=== PATIENT | female | born 1970 | race Caucasian/White ===

== ENCOUNTER → 2016-10-07 | Outpatient (CLI) | payer OTHER ==
[~2016-10-07] MED LIST: BECL0.3A INH; CMBIN INH; IBUP-1451 PO; MULT-506 PO
[2016-10-07 12:13] LABS: MEAN CELL VOLUME 88.6 fL (80-100); MEAN CORPUSCULAR HEMOGLOBIN 30.2 pg (25-34); MEAN CORPUSCULAR HGB CONC 34.1 g/dl (32-36); MEAN PLATELET VOLUME 10.9 fL (7.4-10.4); PLATELET COUNT 267 K/uL (130-400); RED BLOOD COUNT 4.63 M/uL (4.2-5.4); WHITE BLOOD COUNT 6.78 K/uL (4.8-10.8)
[2016-10-07 13:41] LABS: BLOOD UREA NITROGEN 14 mg/dl (7-18); BUN/CREATININE RATIO 19.3 (10-20); CALCIUM 8.6 mg/dl (8.5-10.1); CARBON DIOXIDE 24 mmol/L (21-32); CHLORIDE 109 mmol/L (98-107); CHOLESTEROL 154 mg/dl (0-200); CREATININE 0.74 mg/dl (0.60-1.20); GLUCOSE 96 mg/dl (70-99); SODIUM 140 mmol/L (136-145); TRIGLYCERIDES 51 mg/dl (0-150); VERY LOW DENSITY LIPOPROT CALC 10 mg/dl
[2016-10-07 13:47] LABS: CHOLESTEROL/HDL RATIO 2.8; HDL CHOLESTEROL 56 mg/dl; LDL CHOLESTEROL CALCULATED 88 mg/dl
== END | disposition home or self-care (01) ==
LOC: C.LABPBG 08:33
PROVIDERS: ATTEND Family Medicine
DX: Z13.220 Encounter for screening for lipoid disorders (principal)

== ENCOUNTER 2023-08-28 04:41 | Inpatient (IN) ==
--- OUTSIDE RECORDS SUMMARY | 2023-08-28 04:46 | External Medical Summary | Summary of Care ---
Author Name Unknown Organization [facility] Address [address] [place] [address] Phone [phone] Care Team Providers Care Computer Game Tester Name Role Phone Alexus Thakkar DO Primary Care Provider [phone]- [phone] Encounter Details Date Type Department Care Team (Late st Contact Info) Description 07/04/2023 Patient Reported Data Patient Survey Ortho [facility] Allergies Active Allergy Reactions Criticality Noted Date Comments Penicillins 08/12/2004 hives documented as of this encounter (statuses as of 07/04/2023) Medications Medication Sig Dispensed Refills Start Date End Date Status meclizine (ANTIVERT) 25 MG Tablet TAKE 1 TABLET BY MOUTH 3 TIMES A DAY NEEDED FOR DIZZINESS 07/10/2019 Active Cetirizine HCl (ZYRTEC ALLERGY) 10 MG Capsule Take 1 Capsule by mouth in the morning. Active Multiple Vitamins-Minerals (MULTIVITAMIN ADULT) TABS Take by mouth. Active vitamin b-12 (CYANOCOBALAMIN) 250 MCG TABS Take 1 Tablet by mouth in the morning. Active Hydroquinone 4 % External CreamIndications: Melasma Apply to dark spots on face after mixing with 1% OTC hydrocortisone cream nightly 28.35 g 2 11/22/2019 Active Additional Information Patient not taking.Reported on 04/01/2023 Phentermine HCl 37.5 MG Oral Capsule PLEASE SEE ATTACHED FOR DETAILED DIRECTIONS Active Lisinopril 5 MG Oral Tablet (Prinivil) Take 1 Tablet by mouth in the morning. Active Docusate Sodium 100 MG Oral Capsule (Colace) 1 Capsule. 10/16/2022 Active metFORMIN HCl 500 MG/5ML Oral Solution (Riomet) Take by mouth 2 times a day with morning and evening meals. Active Acetaminophen-Cod eine 300-30 MG Oral Tablet Take 1 Tablet by mouth every 4 hours as needed for Pain, Moderate. May take 2 tablets for severe pain. 10 Tablet 1 06/28/2023 Active documented as of this encounter (statuses as of 07/04/2023) Active Problems Problem Noted Date Diagnosed Date Carpal tunnel syndrome, bilateral 05/14/2023 documented as of this encounter (statuses as of 07/04/2023) Immunizations Name Administration Dates Next Due TDAP (age 10 and older)(Boostrix) 02/13/2019 documented as of this encounter Social History Tobacco Use Types Packs/Day Years Used Date Smoking Tobacco: Never Smokeless Tobacco: Never Alcohol Use Standard Drinks/Week Comments Yes 0 (1 standard drink = 0.6 oz pur e alcohol) AUDIT-C Answer Date Recorded Frequency of Alcohol Consumption Monthly or less 08/23/2018 Average Number of Drinks Not on file 019 Frequency of Binge Drinking Not on file 08/08 PHQ-2 Answer Date Recorded PHQ-2 Score 0 09/14/2019 Sex and Gender Information Value Date Recorded Sex Assigned at Not on file Gender Identity Not on file Sexual Orientation Not on file Job Start Date Occupation Industry Not on file Not on file Not on file documented as of this encounter Plan of Treatment Upcoming Encounters Date Type Department Care Team (Late st Contact Info) Description 07/09/2023 2:00 PM EDT Office Visit Orthopaedics [facility] [address] [address] Chuy Miller MD [address] [facility] [place] [address] 09/27/2023 8:00 AM EDT Office Visit Dermatology [address] [place] [address] Ivy Long PA-C [address] [place] [address] [place] [address] 12/06/2023 1:30 PM EDT Imaging Radiology [facility] 1st [facility] [address] [facility] [place] [address] Health Maintenance Due Date Last Done Comments Lipid Panel 1968 HIV Screening 11/07/1983 Hepatitis C Screening 1986 Hepatitis B (1 of 3 - 19+ 3-dose series) 11/07/1987 Diabetes Screening 05/23/2011 05/22/2008 Colonoscopy 2013 Fecal Occult Blood Test 2013 Sigmoidoscopy 2013 Zoster Vaccines (1 of 2) 2018 Depression Screening 09/13/2020 09/14/2019 COVID-19 Vaccine (1 - season) 2022 Influenza Vaccine (FLU shot) (Season Ended) 2023 11/23/2013 Mammogram 12/02/2023 12/01/2022, 11/09, 11/28/2021, Additional history exists Cologuard 12/15/2025 12/15/2022 Colorectal Cancer Screening 12/15/2025 DTaP,Tdap,and Td Vaccines (2 - Td or Tdap) 02/13/2029 02/13/2019 GARDASIL-HPV IMMUNIZATION SERIES Aged Out No longer eligible based on patient's age to complete this topic MENINGOCOCCAL (MENACTRA/MENVEO) Aged Out No longer eligible based on patient's age to complete this topic Pneumococcal Vaccine: Pediatrics (0 to 5 Years) and At-Risk Patients (6 to 64 Years) Aged Out No longer eligible based on patient's age to complete this topic documented as of this encounter Medical Devices Not on filedocumented as of this encounter Care Teams Computer Game Tester Relationship Specialty Start Date End Date Alexus Thakkar DO [address] [place] [address] [place] [address] PCP - General Family Medicine 10/13/16 documented as of this encounter
--- OUTSIDE RECORDS SUMMARY | 2023-08-28 04:46 | External Medical Summary | Summary of Care ---
Author Name Unknown Organization [facility] Address [address] [place] [address] Phone [phone] Care Team Providers Care Eight Arm Operator Name Role Phone Alexus Thakkar DO Primary Care Provider +1- [phone] Encounter Details Date Type Department Care Team [...] 07/09/2023 2:00 PM EDT Office Visit Orthopaedics [facility] [address] [address] Chuy Miller MD 132 [facility] [place] [address] 09/27/2023 8:00 AM EDT Office Visit Dermatology [address] [place] [address] Ivy Long PA-C [address] [place] [address] [place] [address] 12/06/2023 1:30 PM EDT Imaging Radiology [facility]st [facility] [address] [facility] [place] [address] Health Maintenance Due Date Last Done Comments [...] filedocumented as of this encounter Care Teams Eight Arm Operator Relationship Specialty Start Date End Date Alexus Thakkar DO [address] [place] [address] [place] [address] PCP - General Family Medicine 10/13/16 documented as of this encounter
--- OUTSIDE RECORDS SUMMARY | 2023-08-28 04:46 | External Medical Summary | Summary of Care ---
Author Name Unknown Organization [facility] Address [address] [facility] [place] [address] Phone [phone] Care Team Providers Care Washer Off Name Role Phone Ariane Alexusradha Martínez Primary Care Provider +1- [phone] Reason for Visit * Reason Comments Post-Op Rt CTR Encounter Details Date Type Department Care Team (Late st Contact Info) Description 07/09/2023 2:00 PM EDT Office Visit Orthopaedics [facility] [address] [place] [address] Chuy Miller MD [address] [place] [address] Carpal tunnel syndrome, bilateral* Allergies Active Allergy Reactions Criticality Noted Date Comments Penicillins 08/12/2004 hives documented as of this encounter (statuses as of 07/09/2023) Medications Medication Sig Dispensed Refills Start Date [...] as of this encounter (statuses as of 07/09/2023) Active Problems Problem Noted Date Diagnosed Date Carpal tunnel syndrome, bilateral 05/14/2023 documented as of this encounter (statuses as of 07/09/2023) Immunizations Name Administration Dates Next Due TDAP [...] on file documented as of this encounter Progress Notes * Chuy Miller MD - 07/09/2023 2:10 PM EDT She is 1 week status post release of her right carpal tunnel. She has no complaints. She has no numbness. Patient Active Problem List Diagnosis Carpal tunnel syndrome, bilateral Current Outpatient Medications Medication Sig Dispense Refill meclizine (ANTIVERT) 25 MG Tablet TAKE 1 TABLET BY MOUTH 3 TIMES A DAY NEEDED FOR DIZZINESS (Patient not taking: Reported on 04/01/2023) Cetirizine HCl (ZYRTEC ALLERGY) 10 MG Capsule Take 1 Capsule by mouth in the morning. Multiple Vitamins-Minerals (MULTIVITAMIN ADULT) TABS Take by mouth. (Patient not taking: Reported on 06/28/2023) vitamin b-12 (CYANOCOBALAMIN) 250 MCG TABS Take 1 Tablet by mouth in the morning. Hydroquinone 4 % External Cream Apply to dark spots on face after mixing with 1% OTC hydrocortisonecream nightly (Patient not taking: Reported on 04/01/2023) 28.35 g 2 Phentermine HCl 37.5 MG Oral Capsule PLEASE SEE ATTACHED FOR DETAILED DIRECTIONS (Patient not taking: Reported on 06/28/2023) Lisinopril 5 MG Oral Tablet (Prinivil) Take 1 Tablet by mouth in the morning. Docusate Sodium 100 MG Oral Capsule (Colace) 1 Capsule. metFORMIN HCl 500 MG/5ML Oral Solution (Riomet) Take by mouth 2 times a day with morning and evening meals. Acetaminophen-Codeine 300-30 MG Oral Tablet Take 1 Tablet by mouth every 4 hours as needed for Pain, Moderate. May take 2 tablets for severe pain. 10 Tablet 1 No current facility-administered medications for this visit. Review of patient's allergies indicates: Allergen Reactions Pcn [Penicillins] hives Past Medical History: Diagnosis Date Endometriosis Mitral valve prolapse Social History Tobacco Use Smoking status: Never Smokeless tobacco: Never Substance Use Topics Alcohol use: Yes Vaping/E-Cigarette Use Vaping/E-Cigarette Substances Vaping/E-Cigarette Devices PHYSICAL EXAM: The wound is clean and dry. There is no sign of infection. ASSESSMENT: Doing well. PLAN: The splint was discontinued. Wound Care was discussed. She may advance her activities as tolerated. Follow-up will be on a p.r.n. basis. Chuy Miller MD documented in this encounter Nursing Notes * Sharlene Cruz LPN - 07/09/2023 1:54 PM EDT 1st office visit S/P Rt CTR 06/28/23 . Sharlene Wiseman LPN documented in this encounter Plan of Treatment Upcoming Encounters Date Type Department Care Team (Late st Contact Info) Description 09/27/2023 8:00 AM EDT Office Visit Dermatology [address] [place] [address] Ivy Long PA-C [address] [place] [address] [place] [address] 12/06/2023 1:30 PM EDT Imaging Radiology [facility] 1st [facility] [place] [address] [place] [address] Health Maintenance Due Date Last Done Comments Lipid Panel 1968 HIV Screening 11/07/1983 Hepatitis C Screening 1986 Hepatitis B (1 of 3 - 19+ 3-dose series) 11/07/1987 Diabetes Screening 05/23/2011 05/22/2008 Colonoscopy 2013 Fecal Occult Blood Test 2013 Sigmoidoscopy 2013 Zoster Vaccines (1 of 2) 2018 Depression Screening 09/13/2020 09/14/2019 COVID-19 Vaccine ( - season) 2022 Influenza Vaccine (FLU shot) [...] Not on filedocumented as of this encounter Visit Diagnoses Diagnosis Carpal tunnel syndrome, bilateral- Primary Carpal tunnel syndrome documented in this encounter Care Teams Washer Off Relationship Specialty Start Date End Date Alexus Thakkar DO [address] [place] [address] PCP - General Family Medicine 10/13/16 documented as of this encounter
--- OUTSIDE RECORDS SUMMARY | 2023-08-28 04:46 | External Medical Summary | Summary of Care ---
Author Name Unknown Organization [facility] Address [address] [facility] [place] [address] Phone [phone] Care Team Providers Care Sanitary Chemist Name Role Phone Ariane Alexusradha Martínez Primary Care Provider +1- [phone] Reason for Visit * Auth/Cert Specialty Diagnoses / Procedures Referred By Harman jackson Referred To Contact Diagnoses Carpal tunnel syndrome, bilateral Carpal tunnel syndrome, bilateral [G56.03] Procedures CARPAL TUNNEL SURGERY RIGHT NEUROPLASTY MEDIAN NERVE AT CARPAL TUNNEL Chuy Miller MD [address] [employer] [place] [address] [facility] [address] [place] [address] Referral ID Status Reason Start Date Expiration Date Visits Re quested Visits Authorized [id number] Encounter Details Date Type Department Care Team (Latest Contact Info) Description 06/28/2023 9:41 AM EDT - 06/28/2023 12:35 PM EDT Hospital Encounter OR [facility], Operating Room [facility] [address] [place] [address] Chuy Miller MD [address] [employer] [place] [address] Discharge Disposition: Home - Self Care Allergies Active Allergy Reactions Criticality Noted Date Comments Penicillins 08/12/2004 hives documented as of this encounter (statuses as of 06/29/2023) Medications Medication Sig Dispensed Refills Start Date [...] as of this encounter (statuses as of 06/29/2023) Active Problems Problem Noted Date Diagnosed Date Carpal tunnel syndrome, bilateral 05/14/2023 documented as of this encounter (statuses as of 06/29/2023) Immunizations Name Administration Dates Next Due TDAP [...] on file documented as of this encounter Last Filed Vital Signs Vital Sign Reading Time Taken Comments Blood Pressure 120/74 06/28/2023 12:05 PM EDT Pulse 87 06/28/2023 12:05 PM EDT Temperature 36.7 C (98 F) 06/28/2023 12:05 PM EDT Respiratory Rate 18 06/28/2023 12:05 PM EDT Oxygen Saturation 97% 06/28/2023 12:05 PM EDT Inhaled Oxygen Concentration - - Weight 74.8 kg (165 lb) 06/28/2023 9:57 AM EDT Height 154.9 cm (5' 1") 06/28/2023 9:57 AM EDT Body Mass Index 31.18 06/28/2023 9:57 AM EDT documented in this encounter Discharge Instructions * Discharge Instr - AVS* Chuy Miller MD - 06/28/2023 12:05 PM EDT HAND SURGERY PATIENT INSTRUCTIONS You may call Cassidy Bernals [facility] at [phone] during business hours. Keep your hand elevated above the level of your heart for the first 48 - 72 hours and as needed after this time. It is a fact that holding your hand down for even one minute negates holding it up forhours! You may keep your arm in the sling provided, but you must place your hand at the level of your opposite shoulder, not down by your belly. When you are lying down, keep your hand on your chest, or on 2 pillows next to you. When you are sitting, rest your arm on your elbow, with your hand up, or restyour hand on 2 pillows. The nurse will show you how to do this. To prevent stiffness, come out of the sling and move shoulder, elbow and fingers several times a day. If your fingers are not immobilized by a splint, move them. Opening and closing your hand as if youare making a fist, then straightening out your fingers, pumps out fluid and prevents swelling. If your fingers are immobilized, then move only those fingers that are not splinted. If your dressing becomes loose, soiled, unraveled, or damaged in any way, DO NOT TAKE THE DRESSING OFF. CALL THE OFFICE IMMEDIATELY: [phone]. You have been given a prescription for pain medicine. Take it if you need it. Remember - keep your hand elevated to prevent swelling. SWOLLEN HANDS HURT! If your hands or fingers are swollen, cold, blue, or numb, or if the pain in your hands or fingers suddenly increases, CALL THE OFFICE IMMEDIATELY: [phone]. A small amount of blood staining the dressing may not indicate a problem, but you should call the office to be sure. If you do not already have a post-operative appointment scheduled, call the office at [phone] to arrange one. Do not get your hand or the dressing wet. Sponge bathe only. We will talk about when you can get your shower at your first post-operative visit. Do not drive until given permission to do so by your physician. documented in this encounter Progress Notes * Chuy Miller MD - 06/28/2023 12:04 PM EDT [facility] [address] [address] OUTPATIENT SURGERY DISCHARGE SUMMARY NOTE Name: Leela Bianchi Location: [facility] Date: 06/28/2023 Time: 12:04 PM Surgery Date: 06/28/2023 Procedure: RIGHT NEUROPLASTY MEDIAN NERVE AT CARPAL TUNNEL Right Surgeon: Chuy Miller MD Discharge Diagnosis: Right carpal tunnel syndrome After examination of this patient, I have determined she is ready for discharge to home when the patient meets criteria. Discharge instructions were given to the patient. 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 Ricky Myers for hand surgery consultation regarding numbness in her right hand. Symptoms are worse at night and when she drives. She has been wearing a brace at night that is afforded her some relief but she still gets numbness during the day. She gets a few symptoms on the left side but most of her problems on the right. She has had an electrical study. She recently was started on metformin for hyperglycemia. PAST MEDICAL HISTORY: Past Medical History Past Medical History: Diagnosis Date Endometriosis Mitral valve prolapse Problem List There is no problem list on file for this patient. PAST SURGICAL HISTORY: Past Surgical History Past Surgical History: Procedure Laterality Date DELIVERY REDUCTION OF BREAST REMOVAL OF PELVIC STRUCTURES FAMILY HISTORY: Family History Family History Problem Relation Age of Onset Breast Cancer Aunt (Paternal) Breast Cancer Grandmother (Paternal) SOCIAL HISTORY: Social History Social History Tobacco Use Smoking status: Never Smokeless tobacco: Never Substance Use Topics Alcohol use: Yes Drug use: Never MARITAL STATUS: CURRENT MEDICATIONS: Current Medications Current Outpatient Medications Medication Sig Dispense Refill metFORMIN HCl 500 MG/5ML Oral Solution (Riomet) Take by mouth 2 times a day with morning and evening meals. meclizine (ANTIVERT) 25 MG Tablet TAKE 1 TABLET BY MOUTH 3 TIMES A DAY NEEDED FOR DIZZINESS (Patient not taking: Reported on 04/01/2023) Cetirizine HCl (ZYRTEC ALLERGY) 10 MG Capsule Take 10 mg by mouth daily. Multiple Vitamins-Minerals (MULTIVITAMIN ADULT) TABS Take by mouth. vitamin b-12 (CYANOCOBALAMIN) 250 MCG TABS Take 250 mcg by mouth daily. Hydroquinone 4 % External Cream Apply to dark spots on face after mixing with 1% OTC hydrocortisonecream nightly (Patient not taking: Reported on 04/01/2023) 28.35 g 2 Phentermine HCl 37.5 MG Oral Capsule PLEASE SEE ATTACHED FOR DETAILED DIRECTIONS Lisinopril 5 MG Oral Tablet (Prinivil) Take 1 Tablet by mouth in the morning. Docusate Sodium 100 MG Oral Capsule (Colace) 1 Capsule. No current facility-administered medications for this visit. ALLERGIES: Allergies Pcn [penicillins] ROS: Negative for GI, , Cardiac, Respioratory and Neurologic complains. Remainder of systems negative. PHYSICAL EXAMINATION: General: Well developed, well nourished. Neuro: Awake, alert, and oriented. Heart & Lungs OK Extremities: there is full range of motion of the elbows forearms wrists and hands. Phalen's test is positive on the right. Tinel sign is present over the median nerve at the right wrist. Subjective sensation is abnormal in the right thumb index and middle finger. Static 2 point discrimination is normal. There is no intrinsic or extrinsic motor weakness. There is good capillary refill. Electrical studies performed by Dr. Riddle on March 11, 2023 show moderate to severe right carpal tunnel syndrome. IMPRESSION: Right carpal tunnel syndrome. I think she probably has a little bit on the left but it is not symptomatic. PLAN: Release right carpal tunnel documented in this encounter Nursing Notes * Ivy Slade RN - 06/28/2023 12:36 PM EDT Patient is alert, denies pain, and is tolerating po fluids prior to discharge. Patient's R forearm/wrist dressing remains clean, dry, and intact with patient able to wiggle R hand fingers which are pink and warm. There is brisk capillary refill to pt R hand fingers. Patient's R arm is resting in blue sling above heart level. Patient has received and demonstrates understanding of discharge instructions and has verbalized readiness for discharge. Patient's route driver salesperson has picked up postoperative pain medications from in-house pharmacy. Patient ambulates to private auto accompanied by nursing staff. * Ivy Slade RN - 06/28/2023 12:05 PM EDT Director Of Community Services received patient into PACU II at this time, s/p R carpal tunnel procedure under local anesthesia. Patient is awake, a&ox4, VSS- see flowsheet for details. Patient denies pain or nausea at this time. Patient has R wrist/forearm dressing which is clean, dry, and intact with patient able towiggle R hand fingers which are pink and warm. Brisk capillary refill to pt R hand fingers. Patient's R arm resting on chest above heart level. * Annabel Mcneil RN - 06/28/2023 10:39 AM EDT A ''time out'' was initiated by Dr. Miller prior to procedure. The patient was identified by name and date of . The procedure matches written consent, and correct site identified. Correct positioning (as applicable). There is availability of necessary equipment. Pre-procedure checklist was completed. * Annabel Mcneil RN - 06/28/2023 9:45 AM EDT Surgical consent verified with patient. Patient agrees with listed procedure and verified signature. documented in this encounter OR Notes * OR Surgeon - Chuy Miller MD - 06/28/2023 12:02 PM EDT [facility] [address] [address] Right Carpal Tunnel Name: Leela Bianchi Date: 06/28/2023 Time: 12:02 PM Location: OR [facility] Service: Orthopedic Surgery Date of Operation: 06/28/2023 Pre-op Diagnosis: Right Carpal Tunnel Syndrome Post-op Diagnosis: Same Operation: Release Right Carpal Tunnel Surgeon: Chuy Miller MD Assistants: None Anesthesia: Local Drains: None Estimated Blood Loss: minimal. IV Fluids: None Urine Output: N/A Specimens/Disposition: None Apparent Intraoperative Complications: None Patient Condition: Good Disposition: PACU Attestation: I performed the entire operation. Description of operation: The patient was seen in the holding area where the Right wrist and palm were infiltrated with 20 mLof 1% lidocaine with epinephrine and sodium bicarbonate. The patient was then brought to the operating room where the Right upper extremity was prepped and draped in the usual fashion. A standard approach to the carpal tunnel was made in the palm with an ulnar extension at the wrist. Sharp dissection was carried down to subcutaneous tissue. Hemostasis was achieved with electrocautery as necessary. The palmar aponeurosis was divided in line with the skin incision exposing the ulnar fat pad whichwas retracted. The ligament was longitudinally divided under direct vision. The antebrachial fascia was released. The nerve was dissected free from its attachments to the deep surface of the ligament. The nerve was hyperemic in the region of the carpal tunnel. A persistent median artery was found. Skin closure was with 4-0 Vicryl Rapide and a bulky dry sterile compressive dressing which incorporated a volar plaster splint was applied. The patient was taken to the holding area in satisfactory condition. All dissection was performed under appropriate magnification. documented in this encounter Plan of Treatment Upcoming Encounters Date Type Department Care Team (Late st Contact Info) Description 07/09/2023 2:00 PM EDT Office Visit Orthopaedics [facility] [address] [facility] [place] [address] Chuy Miller MD 132 [facility] [place] [address] 09/27/2023 8:00 AM EDT Office Visit Dermatology [address] [place] [address] Ivy Long PA-C [address] [place] [address] [place] [address] 12/06/2023 1:30 PM EDT Imaging Radiology [address] [place] [address] Health Maintenance Due Date Last Done Comments Lipid Panel 1968 HIV Screening 11/07/1983 Hepatitis C Screening 1986 Hepatitis B (1 of 3 - 19+ 3-dose series) 11/07/1987 Diabetes Screening 05/23/2011 05/22/2008 Colonoscopy 2013 Fecal Occult Blood Test 2013 Sigmoidoscopy 2013 Zoster Vaccines (1 of 2) 2018 Depression Screening 09/13/2020 09/14/2019 COVID-19 Vaccine (1 - 2022- season) 2022 Influenza Vaccine (FLU shot) (Season [...] Carpal tunnel syndrome documented in this encounter Administered Medications Inactive Administered Medications - up to 3 most recent administrations Medication Order MAR Action Action Date Dose Rate Site buffered lidocaine 1% w/epi 1:[id number] inj 20 mL 20 mL, Subcutaneous, ONCE, On Wed06/28/23 at 1015, For 1 dose, Buffered with sodium bicarbonate, Pre-Op Given 06/28/2023 10:41 AM EDT 20 mL Wrist Right documented in this encounter Active and Recently Administered Medications Times are shown in EDT. Scheduled Medication Order 06/26/2023 06/27/2023 06/28/2023 buffered lidocaine 1% w/epi 1:[id number] inj 20 mL (COMPLETED) 20 mL, Subcutaneous, ONCE, On 06/28/23 at 1015, For 1 dose, Buffered with sodium bicarbonate, Pre-Op 1041 (Given - Provid er: Annabel Mcneli RN - Comment: injected by Dr. Miller) documented in this encounter Care Teams Sanitary Chemist Relationship Specialty Start Date End Date Alexus Thakkar DO [address] [place] [address] [place] [address] PCP - General Family Medicine 10/13/16 documented as of this encounter
--- OUTSIDE RECORDS SUMMARY | 2023-08-28 04:46 | External Medical Summary | Summary of Care ---
Author Name Unknown Organization [facility] Address [address] [place] [address] Phone [phone] Care Team Providers Care Operator Catalyst Concentration Name Role Phone Alexus Thakkar DO Primary Care Provider +1- [phone] Encounter Details Date Type Department Care Team [...] 07/09/2023 2:00 PM EDT Office Visit Orthopaedics [facility] [address] [place] [address] hCuy Miller MD 132 [facility] [place] [address] 09/27/2023 8:00 AM EDT Office Visit Dermatology [address] [place] [address] Ivy Long PA-C [address] [place] [address] [place] [address] 12/06/2023 1:30 PM EDT Imaging Radiology [facility] [address] [facility] [place] [address] Health Maintenance Due Date Last Done Comments [...] filedocumented as of this encounter Care Teams Operator Catalyst Concentration Relationship Specialty Start Date End Date Alexus Thakkar DO [address] [place] [address] [place] [address] PCP - General Family Medicine 10/13/16 documented as of this encounter
--- OUTSIDE RECORDS SUMMARY | 2023-08-28 04:46 | External Medical Summary | Summary of Care ---
Author Name Unknown Organization [facility] Address [address] [facility] [place] [address] Phone [phone] Care Team Providers Care Gerentological Physiotherapist Name Role Phone Ariane Alexusradha Martínez Primary Care Provider +1- [phone] Reason for Visit * Reason Comments Joint Pain Right hand pain and numbness * Evaluate & Treat - Unlimited Visits (Within 10 days (routine)) - Authorized Specialty Diagnoses / Procedures Referred By Harman jackson Referred To Contact Orthopaedic Surgery / Orthopedics Diagnoses Carpal tunnel syndrome of right wrist Ricky Myers MD [address] [place] [address] Referral ID Status Reason Start Date Expiration Date Visits Requested Visits Authorized [id number] Authorized Specialty Services Required 04/01/[phone] Encounter Details Date Type Department Care Team (Late st Contact Info) Description 05/14/2023 2:00 PM EDT Office Visit Orthopaedics [facility] [address] [place] [address] Chuy Miller MD [address] [place] [address] Carpal tunnel syndrome, bilateral* Allergies Active Allergy Reactions Criticality Noted Date Comments Penicillins 08/12/2004 hives documented as of this encounter (statuses as of 05/14/2023) Medications Medication Sig Dispensed Refills Start Date End Date Status meclizine (ANTIVERT) 25 MG Tablet TAKE 1 TABLET BY MOUTH 3 TIMES A DAY NEEDED FOR DIZZINESS 0 07/10/2019 Active Cetirizine HCl (ZYRTEC ALLERGY) 10 MG Capsule Take 10 mg by mouth daily. 0 Active Multiple Vitamins-Minerals (MULTIVITAMIN ADULT) TABS Take by mouth. 0 Active vitamin b-12 (CYANOCOBALAMIN) 250 MCG TABS Take 250 mcg by mouth daily. 0 Active Hydroquinone 4 % External CreamIndications:M elasma Apply to dark spots on face after mixing with 1% OTC hydrocortisone cream nightly 28.35 g 2 11/22/2019 Active Additional Information Patient not taking.Reported on 04/01/2023 Phentermine HCl 37.5 MG Oral Capsule PLEASE SEE ATTACHED FOR DETAILED DIRECTIONS 0 Active Lisinopril 5 MG Oral Tablet (Prinivil) Take 1 Tablet by mouth in the morning. 0 Active Docusate Sodium 100 MG Oral Capsule (Colace) 1 Capsule. 0 10/16/2022 Active metFORMIN HCl 500 MG/5ML Oral Solution (Riomet) Take by mouth 2 times a day with morning and evening meals. 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 PAST MEDICAL HISTORY: Past Medical History: Diagnosis Date Endometriosis Mitral valve prolapse There is no problem list on file for this patient. PAST SURGICAL HISTORY: Past Surgical History: Procedure Laterality Date DELIVERY REDUCTION OF BREAST REMOVAL OF PELVIC STRUCTURES FAMILY HISTORY: Family History Problem Relation Age of Onset Breast Cancer Aunt (Paternal) Breast Cancer Grandmother (Paternal) SOCIAL HISTORY: Social History Tobacco Use Smoking status: Never Smokeless tobacco: Never Substance Use Topics Alcohol use: Yes Drug use: Never MARITAL STATUS: CURRENT MEDICATIONS: Current Outpatient Medications Medication Sig Dispense Refill [...] current facility-administered medications for this visit. ALLERGIES: Pcn [penicillins] ROS: Negative for GI, , [...] left but it is not symptomatic. PLAN: We discussed options. She requested surgical release. We talked about open and endoscopic procedures and she requested an open release. Risks, benefits, alternatives and realistic expectations were explained in detail. Release of her right carpal tunnel is to be scheduled under local anesthesia. Thank you for this consultation. There is no problem list on file for this patient. Chuy Miller MD documented in this encounter Nursing Notes * Sharlene Cruz LPN - 05/14/2023 1:46 PM EDT Ref by Dr Ricky Myers for Rt CTS. Wears night wrist brace. Pt is RHD Sharlene Wiseman LPN documented in this encounter Plan of Treatment Upcoming Encounters Date Type Department Care Team (Late st Contact Info) Description 09/27/2023 8:00 AM EDT Office Visit Dermatology [address] [place] [address] Ivy Long PA-C [address] [place] [address] [place] [address] 12/06/2023 1:30 PM EDT Imaging Radiology [facility] [address] [facility] [place] [address] Health Maintenance Due Date Last Done Comments Lipid Panel 1968 HIV Screening 11/07/1983 Hepatitis C Screening 1986 Hepatitis B (1 of 3 - 19+ 3-dose series) 11/07/1987 Colonoscopy 2013 Fecal Occult Blood Test 2013 [...] syndrome documented in this encounter Care Teams Gerentological Physiotherapist Relationship Specialty Start Date End Date Alexus Thakkar DO [address] [facility] [address] [place] [address] PCP - General Family Medicine 10/13/16 documented as of this encounter
--- OUTSIDE RECORDS SUMMARY | 2023-08-28 04:46 | External Medical Summary | Summary of Care ---
Author Name Unknown Organization [facility] Address [address] [facility] [place] [address] Phone [phone] Care Team Providers Care Water Quality Specialist Name Role Phone Ariane Alexusradha Martínez Primary Care Provider +1- [phone] Reason for Visit * Reason Comments Joint Pain Right hand pain and numbness * Evaluate & Treat - Unlimited Visits (Within 10 days (routine)) - Authorized Specialty Diagnoses / Procedures Referred By Harman jackson Referred To Contact Orthopaedic Surgery / Orthopedics Diagnoses Carpal tunnel syndrome of right wrist Ricky Myers MD [address] [place] [address] Referral ID Status Reason Start Date Expiration Date Visits Requested Visits Authorized [id number] Authorized Specialty Services Required 04/01/[phone] Encounter Details Date Type Department Care Team (Late st Contact Info) Description 05/14/2023 2:00 PM EDT Office Visit Orthopaedics [facility] [address] [place] [address] Macho Crow MD [address] [place] [address] Carpal tunnel syndrome, bilateral* Allergies Active Allergy Reactions Criticality Noted Date Comments Penicillins 08/12/2004 hives documented as of this encounter (statuses as of 05/15/2023) Medications Medication Sig Dispensed Refills Start Date [...] as of this encounter (statuses as of 05/15/2023) Active Problems Problem Noted Date Diagnosed Date Carpal tunnel syndrome, bilateral 05/14/2023 documented as of this encounter (statuses as of 05/15/2023) Immunizations Name Administration Dates Next Due TDAP [...] as of this encounter H&P Notes * Macho Crow MD - 05/14/2023 2:01 PM EDT HISTORY & PHYSICAL EXAMINATION - Hand Surgery Name: Leela Bianchi Date: 05/14/2023 Time: 2:01 PM Date and Time Patient was Seen: 05/14/2023 at 2:01 PM PRESENTING PROBLEM: Numbness in the hands, primarily the right HPI: The patient is a 52-year-old oukvi-ruoe-qvpazmyb 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 Macho Crow MD documented in this encounter Nursing Notes * Sharlene Cruz LPN - 05/14/2023 1:46 PM EDT Ref by Dr Ricky Myers for Rt CTS. Wears night wrist brace. Pt is RHD Sharlene Wiseman LPN documented in this encounter Miscellaneous Notes * Addendum Note - Macho Crow MD - 05/15/2023 3:48 PM EDTAddended by: MACHO CROW on: 05/15/2023 03:48 PM Modules accepted: Orders documented in this encounter Plan of Treatment Upcoming Encounters Date Type Department Care Team (Late st Contact Info) Description 09/27/2023 8:00 AM EDT Office Visit Dermatology [place] [address] [place] [address] Ivy Long PA-C [address] [place] [address] [place] [address] 12/06/2023 1:30 PM EDT Imaging Radiology [address] [place] [address] Scheduled Procedures Name Priority Associated Diagnoses Date/Ti me NEUROPLASTY MEDIAN NERVE AT CARPAL TUNNEL Carpal tunnel syndrome, bilateral Health Maintenance Due Date Last Done Comments [...] syndrome documented in this encounter Care Teams Water Quality Specialist Relationship Specialty Start Date End Date Alexus Thakkar DO [address] [facility] [address] [place] [address] PCP - General Family Medicine 10/13/16 documented as of this encounter
--- OUTSIDE RECORDS SUMMARY | 2023-08-28 04:46 | External Medical Summary | Summary of Care ---
Author Name Unknown Organization [facility] Address [address] [facility] [place] [address] Phone [phone] Care Team Providers Care Long Term Care Pharmacist Name Role Phone Ariane Alexusradha Martínez Primary Care Provider [phone]- [phone] Reason for Visit * Reason Comments Joint Pain Right hand pain and numbness * Evaluate & Treat - Unlimited Visits (Within 10 days (routine)) - Authorized Specialty Diagnoses / Procedures Referred By Harman jackson Referred To Contact Orthopaedic Surgery / Orthopedics Diagnoses Carpal tunnel syndrome of right wrist Ricky Myers MD [address] [place] [address] Referral ID Status Reason Start Date Expiration Date Visits Requested Visits Authorized [id number] Authorized Specialty Services Required 04/01/2023 [id number] Encounter Details Date Type Department Care Team (Late st Contact Info) Description 05/14/2023 2:00 PM EDT Office Visit Orthopaedics 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 [place] [address] [facility] [place] [address] Health Maintenance Due Date Last Done Comments [...] syndrome documented in this encounter Care Teams Long Term Care Pharmacist Relationship Specialty Start Date End Date Alexus Thakkar DO [address] [facility] [address] [place] [address] PCP - General Family Medicine 10/13/16 documented as of this encounter
--- OUTSIDE RECORDS SUMMARY | 2023-08-28 04:46 | External Medical Summary | Summary of Care ---
Author Name Unknown Organization [facility] Address [address] [facility] [place] [address] Phone [phone] Care Team Providers Care Recording Studio Intern Name Role Phone Ariane Alexusradha Martínez Primary Care Provider [phone]- [phone] Reason for Visit * Reason Comments Joint Pain Right hand pain and numbness * Evaluate & Treat - Unlimited Visits (Within 10 days (routine)) - Authorized Specialty Diagnoses / Procedures Referred By Harman jackson Referred To Contact Orthopaedic Surgery / Orthopedics Diagnoses Carpal tunnel syndrome of right wrist Ricky Myers MD [address] [place] [address] Referral ID Status Reason Start Date Expiration Date Visits Requested Visits Authorized [id number] Authorized Specialty Services Required 04/01/2023 [id number] Encounter Details Date Type Department Care Team (Late st Contact Info) Description 05/14/2023 2:00 PM EDT Office Visit Orthopaedics [facility] [address] [place] [address] Macho Crow MD [address] [place] [address] Carpal tunnel syndrome, bilateral* Allergies Active Allergy [...] right HPI: The patient is a 52-year-old [id number] 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
--- NOTE | 2023-08-28 05:00 | Emergency Department Note ---
Impression & Plan Asthma exacerbation ED Provider Note Name: KRISHNA BROWN Age: 52 Sex: Female Arrives Via: Walk-In Informant: Patient ED Provider: Abhi Perez MD Chief Complaint: Shortness of breath Impression: As per impressions above Medical Decision Makin-year-old female with long history of asthma arrives for evaluation of worsening shortness of breath. Ongoing symptoms for the last 4 days though significantly worse over the last 24 to 48 hours. Patient has very tight lung sounds on arrival with diffuse wheezing and junky cough. Mildly tachycardic with O2 sats in the mid to low 90s. had viral illness about a week prior. Patient given hour-long neb, IV steroids, IV magnesium and some Hycodan. Breathing moderately improved though still having diffuse wheezing cough and shortness of breath. Heart rate is now jumped to the 150s I suspect secondary to prolonged nebulizer. She is not having any chest pain or concerning signs or symptoms with this. Her examination does still concerning for asthma exacerbation that has not yet cleared. Respiratory panel is negative. Chest x- ray is clear. Laboratory workup is unremarkable. There is no clear evidence of sepsis. She did have a fever earlier today though at this point suspect viral in nature. Would defer to hospitalist service if antibiotic management. Given the persistent respiratory issues hospitalist consulted for further management. Given long history of asthma similar symptoms today no recent travel or other concerning risk factors for PE I do not feel CT angiography of chest is necessary at this time. There is no evidence of CHF, ACS or sepsis. Triage/Nursing Notes reviewed by Me Differential:Reactive airway disease, pneumonia, pneumothorax, CHF, infections, cardiac ischemia, pulmonary embolism, musculoskeletal, gastrointestinal, as well as other pathologies. Vital Signs: reviewed and remarkable for tachycardia mildly low O2 Interventions: Hour-long nebulizer, Decadron 10 mg IV, magnesium 1 g IV, Hycodan p.o., normal saline bolus 1 L IV Labs:ED labs Reviewed by me and remarkable for no significant abnormalities Imagin view chest x-ray as per my interpretation no infiltrate or effusion appreciated. EKG:As per my interpretation. Indication tachycardia. Sinus tachycardia 146 bpm with a QTc of 425. There is no ectopy nor ischemia. There is some lateral ST depressions consistent with late. No previous EKG for comparison. Cardiac/Tele Monitoring: Cardiac Monitoring: An Order was placed for continuous cardiac monitoring. The monitor shows a rate of 120 with a sinus tach rhythm. Consults:Discussed with [facility] who will evaluate for further management. Plan: Disposition:Hospitalization. Condition: Good History of Present Illness: 52-year-old female arrives for evaluation of shortness of breath. Patient with 4 days of worsening symptoms. Additional 2 days patient with a dry cough that has gradually become more productive. Notes unable to sleep due to hacking cough. She has a history of asthma and started noticing some wheezing last 2 days. She been using her inhaler without much improvement. She did take 50 of prednisone yesterday of her 's. Due to increasing fevers throughout the night difficulty catching her breath she arrives to the ER for evaluation. She denies any specific chest pain, syncope, headache, neck stiffness, abdominal pain, nausea, vomiting or other concerning signs or symptoms. She has had no recent leg swelling or calf pain. She has had no recent travel or history of PE/DVT. Past Medical History: Asthma, GERD, prediabetes, hypertension Home Medications: Metformin, albuterol, cetirizine, lisinopril Allergies: Penicillins Vitals:Blood Pressure: 124/88, Pulse 120, RR 20, T 36.9C, O2 93% on RA Physical Exam: GENERAL: Patient is uncomfortable appearing and in moderate distress. Warm to touch mildly diaphoretic RESPIRATORY: Persistent hacking dry cough difficulty catching breath with dyspnea tachypnea. Diffusely tight lung sounds and expiratory wheezing noted. CARDIOVASCULAR: Tachycardia.No murmur appreciated. EXTREMITIES: Normal motion all extremities, no cyanosis, no edema. NEUROLOGIC: Alert and oriented. No focal neurologic deficits appreciated SKIN: No rash, no jaundice, no diaphoresis. PSYCH: Appropriate GCS: 15 ED Course: Times/Reassessments: Breathing somewhat improved however persistent diffuse wheezing and tight lung sounds and heart rate is now in the 150s. Abhi Perez MD Past Med/Surg History Problem List (Updated 08/28/23 @ 06:43 by Abhi Perez MD) Asthma exacerbation (Acute) Prediabetes Carpal tunnel syndrome, right Rectocele Hypertension Mitral valve prolapse Anxiety GERD (gastroesophageal reflux disease) History of cold sores Intrinsic asthma Medical History (Updated 08/28/23 @ 06:43 by Abhi Perez MD) Asthma Vertigo Surgical History Hx of tonsillectomy S/P hysterectomy (05/2010) endometriosis. S/P dilatation and curettage S/P cholecystectomy S/P section S/P reduction mammoplasty S/P abdominoplasty Family History Son Asthma Father Asthma Hx of CABG Stroke Coronary heart disease Diabetes Hypertension Heart disease Myocardial infarction Mother Hypertension Grandmother (Paternal) Breast cancer Uncle Myocardial infarction Brother Hypertension Denies family history of Ovarian cancer Lung cancer Colorectal cancer Social History Smoking Status: Never smoker Second Hand Exposure: No; Tobacco Cessation Education Requested by Patient: No Hx Alcohol Use: No Hx Substance Use: No Preferred Language: Welsh Communication Ability: Effective Visual Impairment: No Limitations Hearing Ability: Normal Home Health Care Coordinator Required: Yes Beliefs That Will Affect Care: None marital status: Current Living Situation: Spouse current occupational status: retired current occupation: [employer] Other Information That Helps Us Care for You: No Feels Safe at Home: Yes Safety Concerns: Feels Safe At This Time Diet: regular Diet Comment: regular caffeine: Yes during the past year weight has: remained stable Dental Care, Regularly: Yes Physical Activity Frequency: Daily Seatbelt Use: always Sunscreen Use: Yes Assistive Devices: Glasses Allergies Allergies Allergy/AdvReac Type Severity Reaction Status Date / Time Penicillins Allergy Intermediate HIVES Verified 04/20/23 09:09 Home Meds Home Medications Medication Instructions Recorded Confirmed vitamin B complex 1 cap PO DAILY 10/14/21 04/20/23 cetirizine 10 mg tablet (Zyrtec) 10 mg PO DAILY 12/23/21 04/20/23 docusate sodium 100 mg capsule 100 mg PO BID 10/16/22 04/20/23 (Colace) Previous Rx's Medication Instructions Recorded bimatoprost 0.03 % drops with 1 applic topical DAILY #5 mL 12/08/22 applicator, eyelash base (Latisse) lisinopril 5 mg tablet 5 mg PO DAILY #90 tabs 01/07/23 phentermine 37.5 mg capsule 37.5 mg PO QAM #30 caps 01/07/23 albuterol sulfate 90 mcg/actuation See Rx Instructions inhalation 01/28/23 aerosol inhaler .COMPLEX PRN shortness of breath or wheezing #8.5 grams metformin 500 mg tablet 500 mg PO BID #180 tabs 07/16/23 Results & Data (ED) Vital Signs Vital Signs - 24 hr 08/28/23 04:46 08/28/23 05:34 08/28/23 07:12 Temperature 36.9 C Temperature Source Oral Pulse Rate 120 H Pulse Rate [Finger] 99 H 132 H Respiratory Rate 20 16 18 Respiratory Effort / Characteristics Non-Labored Spontaneous Non-Labored Respiratory Depth Normal Respiratory Pattern Regular Blood Pressure 124/88 Blood Pressure [Left Arm] 146/91 H Blood Pressure Mean 100 Blood Pressure Mean [Left Arm] 109 Pulse Oximetry 93 93 98 Oxygen Delivery Method Room Air Room Air Room Air Sepsis Recent Fever Within 48 Hours Yes Sepsis New/Unexplained Change in Mental Status No Sepsis Action Taken by Nursing No Action Required Laboratory Data 08/28/23 05:10 08/28/23 05:10 Lab Results 08/28/23 Range/Units 05:10 WBC 12.21 H (4.8-10.8) K/ul RBC 4.72 (4.20-5.40) M/uL Hgb 13.8 (12.0-16.0) g/dl Hct 40.9 (37.0-47.0) % MCV 86.7 (80.0-100.0) fL MCH 29.2 (25.0-34.0) pg MCHC 33.7 (32.0-36.0) g/dL RDW Std Deviation 39.9 (36.4-46.3) fL RDW Coeff of Adriel 12.7 (11.5-14.5) % Plt Count 274 (130-400) K/uL MPV 10.5 (9.4-12.4) fL Immature Gran % (Auto) 0.5 % Neut % (Auto) 83.4 % Lymph % (Auto) 8.1 % Polk % (Auto) 7.2 % Eos % (Auto) 0.2 % Baso % (Auto) 0.6 % Neut # (Auto) 10.18 H (1.40-6.50) K/uL Lymph # (Auto) 0.99 L (1.20-3.40) K/uL Polk # (Auto) 0.88 H (0.11-0.59) K/uL Eos # (Auto) 0.03 (0.00-0.50) K/uL Baso # (Auto) 0.07 (0.00-0.20) K/uL Immature Gran # (Auto) 0.06 (0.01-0.20) K/uL Sodium 137 (136-145) mmol/L Potassium 3.7 (3.5-5.1) mmol/L Chloride 106 (98-107) mmol/L Carbon Dioxide 21 (21-32) mmol/L Anion Gap 10 (3-11) BUN 14 (6-23) mg/dl Creatinine 0.74 (0.6-1.2) mg/dl Est Cr Clr Drug Dosing 83.8 ml/min Est GFR ( Amer) 106.5 ml/min Est GFR (Non-Af Amer) 91.8 ml/min BUN/Creatinine Ratio 18.9 (10-20) Glucose 112 H (70-99(Fasting)) mg/dl Calcium 9.9 (8.6-10.3) mg/dl Magnesium 1.7 (1.7-2.4) mg/dl Total Bilirubin 0.5 (0.2-1.0) mg/dl Direct Bilirubin 0.1 (0-0.2) mg/dl AST 23 (13-39) U/L ALT 23 (7-52) U/L Alkaline Phosphatase 58 (34-104) U/L Troponin I High Sens 3.2 (0-14) pg/ml Total Protein 7.3 (6.0-8.3) gm/dl Albumin 4.6 (3.4-5.0) gm/dl Procalcitonin < 0.02 (0-0.5) ng/ml Adenovirus (PCR) Not Detected (NotDetected) B. pertussis DNA (PCR) Not Detected (NotDetected) B.parapertussis DNA PCR Not Detected (NotDetected) C. pneumoniae DNA (PCR) Not Detected (NotDetected) Coronavirus OC43 (PCR) Not Detected (NotDetected) Coronavirus HKU1 (PCR) Not Detected (NotDetected) Coronavirus 229E (PCR) Not Detected (NotDetected) SARS-CoV-2 (PCR) Not Detected (NotDetected) Coronavirus NL63 (PCR) Not Detected (NotDetected) Human Metapneumovir PCR Not Detected (NotDetected) Influenza Type A (PCR) Not Detected (NotDetected) Influenza Type B (PCR) Not Detected (NotDetected) M. pneumoniae (PCR) Not Detected (NotDetected) Parainfluenza 1 (PCR) Not Detected (NotDetected) Parainfluenza 2 (PCR) Not Detected (NotDetected) Parainfluenza 3 (PCR) Not Detected (NotDetected) Parainfluenza 4 (PCR) Not Detected (NotDetected) RSV (PCR) Not Detected (NotDetected) Entero/Rhino (PCR) Not Detected (NotDetected) Administered Medications Albuterol (Albuterol 0.083% Nebu Soln 3 Ml Vial) 2.5 mg NEB Q2H PRN; Protocol PRN Reason: Shortness Of Breath Stop: 09/27/23 08:11 Last Admin: 08/28/23 14:26 Dose: 2.5 mg Documented By: LISS Cetirizine HCl (Cetirizine Hcl 10 Mg Tablet) 10 mg PO DAILY [facility] Stop: 09/27/23 08:59 Last Admin: 08/28/23 09:39 Dose: 10 mg Documented By: ANIA Docusate Sodium (Docusate Sodium 100 Mg Cap) 100 mg PO BID [facility] Stop: 09/27/23 08:59 Last Admin: 08/28/23 09:39 Dose: 100 mg Documented By: ANIA Guaifenesin/Codeine Phosphate (Guaifenesin/Codeine 200mg/20mg 10ml Udc) 10 ml PO Q6H PRN PRN Reason: Cough Stop: 09/27/23 08:11 Last Admin: 08/28/23 10:07 Dose: 10 ml Documented By: ANIA Methylprednisolone 40 mg/ (Syringe) 0.64 mls @ 1.5 mls/min IV Q12H [facility]AL[facility] Stop: 09/27/23 08:59 Last Admin: 08/28/23 09:39 Dose: 1.5 mls/min Documented By: ANIA Lisinopril (Lisinopril 5 Mg Tab) 5 mg PO DAILY [facility] Stop: 09/27/23 08:59 Last Admin: 08/28/23 09:39 Dose: 5 mg Documented By: ANIA Miscellaneous (Bimatoprost [Latisse] 0.03 % Drops With Applicator- Order Awaiting Action) 1 each N/A QS AMALIA Stop: 09/27/23 15:59 Last Admin: 08/28/23 14:25 Dose: Not Given Documented By: ISRAEL Discontinued Medications Albuterol (Albut/Ipratrop 3mg/0.5mg Neb 3 Ml Vial) 12 ml NEB ONE ONE; Protocol Stop: 08/28/23 04:57 Last Admin: 08/28/23 05:31 Dose: 12 ml Documented By: ERIC Dexamethasone Sodium Phosphate (DexamethasonePf 10 Mg/Ml Vial) 10 mg IV NOW ONE Stop: 08/28/23 04:57 Last Admin: 08/28/23 05:17 Dose: 10 mg Documented By: FAVIAN Enoxaparin Sodium (Enoxaparin Inj 40 Mg/0.4 Ml Syr) 40 mg SQ 0900 AMALIA Stop: 08/28/23 12:00 Last Admin: 08/28/23 10:07 Dose: 40 mg Documented By: ANIA Hydrocodone Bit/Homatropine Methylb (Hydrocodone/Homatropine Syrup 5mg/1.5mg 5ml Udp) 5 ml PO NOW STA Stop: 08/28/23 04:57 Last Admin: 08/28/23 05:17 Dose: 5 ml Documented By: FAVIAN Magnesium Sulfate/Dextrose (Magnesium Sulfate / D5w) 1 gm in 100 mls @ 100 mls/hr IV NOW STA Stop: 08/28/23 05:56 Last Infusion: 08/28/23 06:20 Dose: Infused Documented By: Admin: 08/28/23 05:17 Dose: 100 mls/hr Documented By: FAVIAN Sodium Chloride (Nss) 1,000 mls @ 999 mls/hr IV .Q1H1M ONE Stop: 08/28/23 07:35 Last Infusion: 08/28/23 07:45 Dose: Infused Documented By: Admin: 08/28/23 06:41 Dose: 999 mls/hr Documented By: FAVIAN Azithromycin 500 mg/ Dextrose 255 mls @ 125 mls/hr IV 0830 ONE Stop: 08/28/23 10:32 Last Infusion: 08/28/23 11:59 Dose: Infused Documented By: Admin: 08/28/23 09:38 Dose: 125 mls/hr Documented By: ANIA Imaging Data Radiologist's Impression: Chest X-Ray 08/28/23 04:57 XR chest 1V portable CLINICAL HISTORY: cough fever TECHNIQUE: Single frontal radiograph of the chest was obtained. Comparison: None available at the time of this dictation. FINDINGS: No lines and tubes are seen. The cardiomediastinal silhouette is normal. The lungs are clear. No evidence of pleural effusion or pneumothorax. IMPRESSION: No acute abnormalities and in particular no radiographic evidence of pneumonia. ACT 112: Negative or not required by law. Electronically signed by: Refugio Bella M.D. 08/28/2023 9:07 AM Discharge Plan Visit Data Chief Complaint: Cough Stated Complaint: COUGH, FEVER ED Provider: Abhi Perez Discharge Problem: Asthma exacerbation Patient Disposition: Admitted As Inpatient Discharge Instructions Interventions: ED Discharge Assessment Last Done: 08/28/23 08:13 Discharge Problem: Asthma exacerbation Qualifiers: Asthma severity: severe Asthma persistence: persistent Qualified Code(s): J 45.51 - Severe persistent asthma with (acute) exacerbation
[2023-08-28] MEDS: MAGNESIUM SULFATE / D5W 1 GM/100 ML BAG IV STA (05:17)
[2023-08-28] MEDS: dexAMETHasone**PF** 10 MG/ML VIAL IV ONE (05:17)
[2023-08-28] MEDS: HYDROcodone/HOMATROPINE SYRUP 5MG/1.5MG 5ML UDP PO STA (05:17)
[2023-08-28 05:28] LABS: Basophils # (auto) 0.07 K/uL (0.00-0.20); Basophils % (auto) 0.6 %; Eosinophils # (auto) 0.03 K/uL (0.00-0.50); Eosinophils % (auto) 0.2 %; Hematocrit (blood only) 40.9 % (37.0-47.0); Hemoglobin 13.8 g/dl (12.0-16.0); Immature Granulocytes # (auto) 0.06 K/uL (0.01-0.20); Immature Granulocytes % (auto) 0.5 %; Lymphocytes # (auto) 0.99 K/uL (1.20-3.40); Lymphocytes % (auto) 8.1 %; Mean Corpuscular Hemoglobin 29.2 pg (25.0-34.0); Mean Corpuscular Hgb Conc 33.7 g/dL (32.0-36.0); Mean Corpuscular Volume 86.7 fL (80.0-100.0); Mean Platelet Volume 10.5 fL (9.4-12.4); Monocytes # (auto) 0.88 K/uL (0.11-0.59); Monocytes % (auto) 7.2 %; Neutrophils # (auto) 10.18 K/uL (1.40-6.50); Neutrophils % (auto) 83.4 %; Platelet Count 274 K/uL (130-400); RDW Coefficient of Variation 12.7 % (11.5-14.5); RDW Standard Deviation 39.9 fL (36.4-46.3); Red Blood Count 4.72 M/uL (4.20-5.40); White Blood Count 12.21 K/ul (4.8-10.8)
[2023-08-28] MEDS: ALBUT/IPRATROP 3MG/0.5MG NEB 3 ML VIAL NEB ONE (05:31)
[2023-08-28 05:41] LABS: Albumin Level 4.6 gm/dl (3.4-5.0); BUN Creatinine Ratio 18.9 (10-20); Bilirubin Direct 0.1 mg/dl (0-0.2); Bilirubin,Total 0.5 mg/dl (0.2-1.0); Calcium 9.9 mg/dl (8.6-10.3); Creatinine Clr Calc Pharmacy 83.8 ml/min; Est GFR (African American) 106.5 ml/min; Est GFR (Non-African American) 91.8 ml/min; Magnesium 1.7 mg/dl (1.7-2.4); Potassium 3.7 mmol/L (3.5-5.1); Total Protein 7.3 gm/dl (6.0-8.3)
[2023-08-28 05:46] LABS: Troponin I High Sensitivity 3.2 pg/ml (0-14)
[2023-08-28 06:26] LABS: Adenovirus PCR Not Detected (NotDetected); Bordetella parapertussis PCR Not Detected (NotDetected); Bordetella pertussis PCR Not Detected (NotDetected); Chlamydia pneumoniae PCR Not Detected (NotDetected); Coronavirus 229E PCR Not Detected (NotDetected); Coronavirus CoV-2 (COVID19)PCR Not Detected (NotDetected); Coronavirus HKU1 PCR Not Detected (NotDetected); Coronavirus NL63 PCR Not Detected (NotDetected); Coronavirus OC43PCR Not Detected (NotDetected); Human Metapneumovirus PCR Not Detected (NotDetected); Influenza A PCR Not Detected (NotDetected); Influenza B PCR Not Detected (NotDetected); Mycoplasma pneumoniae PCR Not Detected (NotDetected); Parainfluenza Virus 1 PCR Not Detected (NotDetected); Parainfluenza Virus 2 PCR Not Detected (NotDetected); Parainfluenza Virus 3 PCR Not Detected (NotDetected); Parainfluenza Virus 4 PCR Not Detected (NotDetected); Respiratory Syncytial VirusPCR Not Detected (NotDetected); Rhinovirus/Enterovirus PCR Not Detected (NotDetected)
[2023-08-28] MEDS: SODIUM CHLORIDE 0.9% 1,000 ML IV ONE (06:41)
--- NOTE | 2023-08-28 07:20 | History & Physical Report ---
Date of Service August 28, 2023 Assessment & Plan (1) Asthma exacerbation: Plan: Patient is here with asthma exacerbation. She has slight improvement after hour-long nebulizer and dexamethasone. Patient be continued on intravenous methylprednisolone and scheduled nebulized treatments with as needed backup. She was given magnesium in the emergency department. Because of her productive cough pneumonias been ruled out by x-ray but she may have bronchitis. Subsequently will give her azithromycin. With the use of methylprednisolone (2) Hypertension: Plan: Patient maintains lisinopril therapy. (3) GERD (gastroesophageal reflux disease): History of Present Illness Primary Care Provider: Alexus Thakkar DO 52-year-old female presents to the ER for 4 days of worsening asthma. She has a history of the same. She had a preceding illness with fevers chills and a productive cough of yellow mucus. She attempted to treat herself at home but progressively worsened. She is around no other ill contacts. He has never been a smoker. She did note some improvement with an hour-long nebulizer in the emergency department Grade this year she is able to speak in full sentences she had a raspy pulmonary examination with easily inducible cough but no focal air loss there were no audible wheezes although she did appear to be short of breath when I saw her Allergies Allergy/AdvReac Type Severity Reaction Status Date / Time Penicillins Allergy Intermediate HIVES Verified 04/20/23 09:09 Home Medications Medication Instructions Recorded Confirmed Type vitamin B complex 1 cap PO DAILY 10/14/21 04/20/23 History cetirizine 10 mg tablet (Zyrtec) 10 mg PO DAILY 12/23/21 04/20/23 History docusate sodium 100 mg capsule 100 mg PO BID 10/16/22 04/20/23 History (Colace) bimatoprost 0.03 % drops with 1 applic topical DAILY #5 mL 12/08/22 04/20/23 Rx applicator, eyelash base (Latisse) lisinopril 5 mg tablet 5 mg PO DAILY #90 tabs 01/07/23 04/20/23 Rx phentermine 37.5 mg capsule 37.5 mg PO QAM #30 caps 01/07/23 04/20/23 Rx albuterol sulfate 90 mcg/actuation See Rx Instructions inhalation 01/28/23 04/20/23 Rx aerosol inhaler .COMPLEX PRN shortness of breath or wheezing #8.5 grams metformin 500 mg tablet 500 mg PO BID #180 tabs 07/16/23 Rx Past Med/Surg History Problem List (Updated 08/28/23 @ 06:43 by Abhi Perez MD) Asthma exacerbation (Acute) Prediabetes Carpal tunnel syndrome, right Rectocele Hypertension Mitral valve prolapse Anxiety GERD (gastroesophageal reflux disease) History of cold sores Intrinsic asthma Medical History (Updated 08/28/23 @ 06:43 by Abhi Perez MD) Asthma Vertigo Surgical History Hx of tonsillectomy S/P hysterectomy (05/2010) endometriosis. S/P dilatation and curettage S/P cholecystectomy S/P section S/P reduction mammoplasty S/P abdominoplasty Family History Son Asthma Father Asthma Hx of CABG Stroke Coronary heart disease Diabetes Hypertension Heart disease Myocardial infarction Mother Hypertension Grandmother (Paternal) Breast cancer Uncle Myocardial infarction Brother Hypertension Denies family history of Ovarian cancer Lung cancer Colorectal cancer Social History Smoking Status: Never smoker Second Hand Exposure: No; Tobacco Cessation Education Requested by Patient: No Hx Alcohol Use: No Hx Substance Use: No Preferred Language: Azeri Communication Ability: Effective Visual Impairment: No Limitations Hearing Ability: Normal Bus Driver/Monitor Required: Yes Beliefs That Will Affect Care: None marital status: Current Living Situation: Spouse current occupational status: retired current occupation: [employer] Other Information That Helps Us Care for You: No Feels Safe at Home: Yes Safety Concerns: Feels Safe At This Time Diet: regular Diet Comment: regular caffeine: Yes during the past year weight has: remained stable Dental Care, Regularly: Yes Physical Activity Frequency: Daily Seatbelt Use: always Sunscreen Use: Yes Assistive Devices: Glasses Physical Exam Physical Exam: Note mild to moderate respiratory distress no headache, no visual changes no speech or swallowing issues no chest pain, pressure or palpitations, patient is tachycardic Shortness of breath nonproductive cough use of accessory muscles no abdominal pain, nausea or vomiting, diarrhea or constipation Of note patient has a grade 1 rectocele by history no dysuria, hematuria or frequency no focal joint pain or swelling no back pain, CVA tenderness or radicular pain no bruising, bleeding or rashes no focal signs of weakness or numbness or altered sensation no complaints of anxiety or depression.. Results & Data Results & Data Vital Signs (Past 12 Hours) Vital Signs Temp Pulse Pulse Resp BP BP Pulse Ox 08/28/23 07:12 132 H 18 146/91 H 98 08/28/23 05:34 99 H 16 93 08/28/23 04:46 98.4 F 120 H 20 124/88 93 O2 Del Method 08/28/23 07:12 Room Air 08/28/23 05:34 Room Air 08/28/23 04:46 Room Air Laboratory Results Reviewed CBC reviewed chemistry reviewed chest x-ray Code Status & VTE Plan VTE Prophylaxis Plan VTE Prophylaxis will be ordered: Yes PG Care Time/CCT Total # of Minutes Spent Total Time Spent with Patient: Total time spent is greater than 50% in coordination of care (as documented) at patient's floor/unit and/or counseling patient: Coding Level of Care Code 40564 INT INP/OBS CARE 2/55MIN Diagnoses Asthma exacerbation J45.51 Asthma persistence: persistent Asthma severity: severe Hypertension I10 GERD (gastroesophageal reflux disease) K21.9 (1) Asthma exacerbation Asthma persistence: persistent Asthma severity: severe Qualified Code(s): J45.51 - Severe persistent asthma with (acute) exacerbation
[2023-08-28] MEDS ORDERED: ACETAMINOPHEN 325 MG TAB PO PRN (08:12)
[2023-08-28] MEDS ORDERED: LORazepam 0.5 MG TAB PO PRN (08:12)
[2023-08-28] MEDS ORDERED: LORazepam 0.5 MG in SYRINGE 0.25 ML IV PRN (08:12)
[2023-08-28] MEDS ORDERED: ALBUTEROL 0.083% NEBU SOLN 3 ML VIAL NEB PRN (08:12)
[2023-08-28] MEDS ORDERED: ONDANSETRON INJ 2 MG/ML 2 ML VIAL IV PRN (08:12)
[2023-08-28] MEDS ORDERED: methylPREDNISolone 125 MG/2 ML VIAL IV SCH (09:00)
--- NOTE | 2023-08-28 09:08 | XRay Report ---
XR chest 1V portable CLINICAL HISTORY: cough fever TECHNIQUE: Single frontal radiograph of the chest was obtained. Comparison: None available at the time of this dictation. FINDINGS: No lines and tubes are seen. The cardiomediastinal silhouette is normal. The lungs are clear. No evid ence of pleural effusion or pneumothorax. IMPRESSION: No acute abnormalities and in particular no radiographic evidence of pneumonia. ACT 112: Negative or not required by law. Electronically signed by: Refugio Bella M.D. 08/28/2023 9:07 AM
[2023-08-28] MEDS: AZITHROMYCIN 500 MG in DEXTROSE 5% 250 ML IV ONE (09:38)
[2023-08-28] MEDS: methylPREDNISolone 40 MG in SYRINGE 0 ML IV SCH (09:39)
[2023-08-28] MEDS: DOCUSATE SODIUM 100 MG CAP PO SCH (09:39)
[2023-08-28] MEDS: CETIRIZINE HCL 10 MG TABLET PO SCH (09:39)
[2023-08-28] MEDS: lisinopril 5 MG TAB PO SCH (09:39)
[2023-08-28] MEDS: ENOXAPARIN INJ 40 MG/0.4 ML SYR SQ SCH (10:07)
[2023-08-28] MEDS: ALBUTEROL 0.083% NEBU SOLN 3 ML VIAL NEB PRN (14:26)
[2023-08-29 07:16] LABS: Hematocrit (blood only) 36.8 % (37.0-47.0); Hemoglobin 12.3 g/dl (12.0-16.0); Mean Corpuscular Hemoglobin 29.8 pg (25.0-34.0); Mean Corpuscular Hgb Conc 33.4 g/dL (32.0-36.0); Mean Corpuscular Volume 89.1 fL (80.0-100.0); Mean Platelet Volume 10.4 fL (9.4-12.4); Platelet Count 264 K/uL (130-400); RDW Coefficient of Variation 13.2 % (11.5-14.5); RDW Standard Deviation 43.7 fL (36.4-46.3); Red Blood Count 4.13 M/uL (4.20-5.40); White Blood Count 14.38 K/ul (4.8-10.8)
[2023-08-29 07:46] LABS: BUN Creatinine Ratio 24.2 (10-20); Calcium 9.4 mg/dl (8.6-10.3); Creatinine Clr Calc Pharmacy 100.8 ml/min; Est GFR (African American) 118.5 ml/min; Est GFR (Non-African American) 102.2 ml/min; Potassium 4.5 mmol/L (3.5-5.1)
[2023-08-29] MEDS: ENOXAPARIN INJ 40 MG/0.4 ML SYR SQ SCH (09:17)
[2023-08-29] MEDS: AZITHROMYCIN 250 MG in DEXTROSE 5% 250 ML IV SCH (09:18)
[2023-08-29] MEDS: SODIUM CHLOR 7% 4 ML NEB NEB ONE (10:30)
[2023-08-29] MEDS: guaiFENesin 600 MG TABCR PO SCH (10:35)
--- NOTE | 2023-08-29 17:00 | Hospitalist Progress Note ---
Date of Service August 29, 2023 Assessment & Plan (1) Asthma exacerbation: Plan: Patient is here with asthma exacerbation. She has slight improvement after hour-long nebulizer and dexamethasone. Patient continues on methylprednisolone and scheduled nebulized treatments with as needed backup. Hypertonic saline and chest physiotherapy. Pertussis sample side due to the park nature of her cough. Because of her productive cough pneumonias been ruled out by x-ray but she may have bronchitis. Remains on azithromycin. Continue methylprednisolone at this time (2) Hypertension: Plan: Patient maintains lisinopril therapy. Admission and Anticipated Discharge Date Admission Date: August 28, 2023 Subjective Patient with a sharp barky cough. Nonproductive. Reportedly had some productivity after hypertonic saline. Continue chest physiotherapy. Overall patient feels slightly improved but not greatly improved. at the bedside and updated Physical Exam Physical Exam: Note mild respiratory distress objectively some improvement. no chest pain, pressure or palpitations, patient is tachycardic Shortness of breath nonproductive cough more coughing on 721 and 720 no abdominal pain, nausea or vomiting, diarrhea or constipation Of note patient has a grade 1 rectocele by history Results & Data Results & Data Vital Signs (Past 12 Hours) Vital Signs Temp Pulse Pulse Resp BP Pulse Ox O2 Del Method 08/29/23 16:05 97.9 F 112 H 18 111/67 92 Room Air 08/29/23 14:16 110 H 16 96 Room Air 08/29/23 13:57 96 H 08/29/23 11:58 97.9 F 108 H 20 142/77 H 93 Room Air 08/29/23 10:32 90 16 96 Room Air 08/29/23 08:00 86 08/29/23 08:00 Room Air 08/29/23 07:53 98.1 F 100 H 18 134/91 95 Room Air 08/29/23 07:43 16 94 Room Air Laboratory Results Reviewed CBC reviewed chemistry Reviewed [id number] glucose PG Care Time/CCT Total # of Minutes Spent Total Time Spent with Patient: Total time spent is greater than 50% in coordination of care (as documented) at patient's floor/unit and/or counseling patient: Coding Level of Care Code 51630 SUB INP/OBS CARE 2/35MIN Diagnoses Asthma exacerbation J45.51 Asthma persistence: persistent Asthma severity: severe Hypertension I10 (1) Asthma exacerbation Asthma persistence: persistent Asthma severity: severe Qualified Code(s): J45.51 - Severe persistent asthma with (acute) exacerbation
[2023-08-29] MEDS: ALBUT/IPRATROP 3MG/0.5MG NEB 3 ML VIAL NEB PRN (19:19)
[2023-08-29] MEDS: SODIUM CHLOR 7% 4 ML NEB NEB SCH (19:19)
[2023-08-29] MEDS ORDERED: guaiFENesin 600 MG TABCR PO SCH (21:00)
[2023-08-30 06:12] LABS: Hematocrit (blood only) 37.6 % (37.0-47.0); Hemoglobin 12.6 g/dl (12.0-16.0); Mean Corpuscular Hemoglobin 29.8 pg (25.0-34.0); Mean Corpuscular Hgb Conc 33.5 g/dL (32.0-36.0); Mean Corpuscular Volume 88.9 fL (80.0-100.0); Mean Platelet Volume 10.5 fL (9.4-12.4); Platelet Count 245 K/uL (130-400); RDW Coefficient of Variation 13.3 % (11.5-14.5); RDW Standard Deviation 43.3 fL (36.4-46.3); Red Blood Count 4.23 M/uL (4.20-5.40); White Blood Count 11.97 K/ul (4.8-10.8)
[2023-08-30 06:35] LABS: BUN Creatinine Ratio 25.9 (10-20); Calcium 9.3 mg/dl (8.6-10.3); Creatinine Clr Calc Pharmacy 106.9 ml/min; Est GFR (African American) 121.1 ml/min; Est GFR (Non-African American) 104.5 ml/min; Magnesium 2.2 mg/dl (1.7-2.4); Potassium 4.6 mmol/L (3.5-5.1)
--- NOTE | 2023-08-30 11:38 | Discharge Summary ---
Date of Service August 30, 2023 Admission HPI Per Admitting Provider 52-year-old female presents to the ER for 4 days of worsening asthma. She has a history of the same. She had a preceding illness with fevers chills and a productive cough of yellow mucus. She attempted to treat herself at home but progressively worsened. She is around no other ill contacts. He has never been a smoker. She did note some improvement with an hour-long nebulizer in the emergency department Grade this year she is able to speak in full sentences she had a raspy pulmonary examination with easily inducible cough but no focal air loss there were no audible wheezes although she did appear to be short of breath when I saw her Principal Diagnosis Acute exacerbation intrinsic asthma, suspected acute bronchitis Discharge Exam General-alert and oriented x3, no fever, no chills HEENT-head atraumatic and normocephalic, pupils equal and reactive to light, extraocular muscles intact Neck-no lymphadenopathy or thyromegaly, trachea midline Chest-scattered bilateral rhonchi. No wheezing Cardiac-regular rate and rhythm, normal S1 and S2 Abdomen-normal bowel sounds, no hepatosplenomegaly Extremities-no cyanosis, clubbing, or edema Neuro-cranial nerves II through XII intact, motor and sensory function within normal limits, strength symmetrical, no focal deficits Psych-normal affect, normal mood Discharge Data Allergies Allergy/AdvReac Type Severity Reaction Status Date / Time Penicillins Allergy Intermediate HIVES Verified 04/20/23 09:09 Consultations 08/28/23 06:48 ED Decision to Admit Stat Hospital Course (1) Asthma exacerbation: Resolved. Will discharge on a prednisone tapering dose and continue azithromycin for suspected acute bronchitis for several more days. She will also be given a prescription for ipratropium nebulizer solution to use 3-4 times a day and her home nebulizer until she is seen by her PCP. (2) Acute bronchitis: Suspected on admission. Treated with intravenous azithromycin while hospitalized. Home on oral azithromycin for several more days (3) Hypertension: Stable. Continue lisinopril therapy Plan Home today, August 29 Total Time Total Time Spent Total Time Spent (In Minutes): 45 minutes Discharge Plan Discharge Items Patient Disposition: Home - Self-Care Reason For Visit: ACUTE ASTHMA EXACERBATION Discharge Diagnosis: Acute exacerbation of intrinsic asthma, acute bronchitis Activity: Resume your previous activity Non-emergency contact: Primary Care Provider Call non-emergency contact if: your symptoms worsen Follow-up/Referrals: Alexus Thakkar DO [Primary Care Provider] - Diet: Regular Addtl Attending Provider Instructions: Take prednisone in a tapering dose fashion as directed. Take azithromycin daily for 5 more days. Use ipratropium nebulizers at least 3 times a day Pending Studies at Discharge: No Stand-Alone Forms: My [facility] [employer], Smoking Cessation Medications and DC Order Prescriptions: New ipratropium bromide 0.02 % solution 1.25 ml inhalation TID Qty: 62.5 0RF azithromycin 500 mg tablet 500 mg PO DAILY 5 Days Qty: 5 0RF prednisone 10 mg tablet See Rx Instructions .ROUTE .COMPLEX Qty: 12 0RF Rx Instructions: 10 mg orally 3 times a day for 2 days, then 10 mg twice a day for 2 days, then 10 mg once a day for 2 days, then stop Continued bimatoprost [Latisse] 0.03 % drops with applicator 1 applic topical DAILY Qty: 5 0RF phentermine 37.5 mg capsule 37.5 mg PO QAM Qty: 30 2RF Hold Instructions: on hold- dizzy Rx Instructions: must administer 30 minutes before or 1-2 hours after breakfast lisinopril 5 mg tablet 5 mg PO DAILY Qty: 90 3RF albuterol sulfate 90 mcg/actuation HFA aerosol inhaler See Rx Instructions inhalation .COMPLEX PRN (Reason: shortness of breath or wheezing) Qty: 8.5 1RF Patient Comments: inhalation INHALE 1 TO 2 PUFFS EVERY 4 TO 6 HOURS PRN; Rx Instructions: inhalation INHALE 1 TO 2 PUFFS EVERY 4 TO 6 HOURS PRN; metformin 500 mg tablet 500 mg PO BID Qty: 180 3RF docusate sodium [Colace] 100 mg capsule 100 mg PO BID cetirizine [Zyrtec] 10 mg tablet 10 mg PO DAILY vitamin B complex Capsule 1 cap PO DAILY Discharge Orders: Discharge Order (Routine); Ordered 08/30/23 Ordered By: Shaheed Contreras Admission Data Admit Date/Time: 08/28/23 07:19 Attending Provider: Shaheed Contreras Admit Provider: Fransico Rizzo Primary Care Provider: Alexus Thakkar Other Providers: Fransico Rizzo Coding Level of Care Code 43958 INP/OBS DISCH >30 MIN Diagnoses Asthma exacerbation J45.51 Asthma persistence: persistent Asthma severity: severe Acute bronchitis J20.9 Hypertension I10
--- NOTE | 2023-08-30 12:00 | Electrocardiogram Report ---
Test Reason : Blood Pressure : / mmHG Vent. Rate : 143 BPM Atrial Rate : 143 BPM P-R Int : 114 ms QRS Dur : 078 ms QT Int : 272 ms P-R-T Axes : 041 007 036 degrees QTc Int : 419 ms Sinus tachycardia Nonspecific ST and T wave abnormality Abnormal ECG When compared with ECG of 06-AUG-2018 14:26, Premature atrial complexes are no longer Present Vent. rate has increased BY [address] now depressed in Lateral leads Confirmed by Immanuel Benitez ([id number]) on 08/30/2023 11:59:50 AM Referred By: REFERRED SELF Confirmed By:Immanuel Benitez
== END 2023-08-30 13:21 | disposition home or self-care (01) | DRG 203 ==
LOC: SUATTDRO → ED 04:41 → SUATTDRO 07:19 → EDINP 07:19 → 2E 08:13